=== PATIENT | male | born 1995 | race Caucasian/White ===

== ENCOUNTER 2018-09-19 13:04 | Emergency (ER) | payer OTHER ==
--- NOTE | 2018-09-19 14:12 | EDM.PDOC ---
ED HPI GENERAL MEDICAL PROBLEM - General Chief Complaint: Lower Extremity Injury/Pain Stated Complaint: LEFT FOOT INJURY Time Seen by Provider: 09/19/18 13:10 Source of Information: Reports: Patient History Limitations: Reports: No Limitations - History of Present Illness INITIAL COMMENTS - FREE TEXT/NARRATIVE: 23 year old male presents for evaluation and treatment of an injury to the left foot. Patient was at work and stepped into a hole. Reports feeling something pop in his foot. Denies hearing any popping, cracking, etc. Denies any inversion or eversion type injury. States he has been unable to bare weight. Reports some swelling to the foot. No bruising to the foot. Injury occurred about 2 hours prior to arrival in the ER. No treatments prior to arrival. Reports previous injuries of ankle sprains, no previous fractures. - Related Data Allergies Allergy/AdvReac Type Severity Reaction Status Date / Time Penicillins Allergy Unknown Other Verified 09/19/18 13:13 Home Meds: Home Meds Omeprazole 40 mg PO DAILY 09/19/18 [History] Past Medical History Cardiovascular History: Reports: Hypertension Respiratory History: Reports: Asthma Gastrointestinal History: Reports: GERD - Past Surgical History Other Musculoskeletal Surgeries/Procedures:: Shoulder Surgery Social & Family History - Tobacco Use Smoking Status *Q: Light Tobacco Smoker Years of Tobacco use: 10 Packs/Tins Daily: 0.2 - Caffeine Use Caffeine Use: Reports: Energy Drinks - Recreational Drug Use Recreational Drug Use: No Review of Systems - Review of Systems Review Of Systems: See Below Musculoskeletal: Reports: Foot Pain (left), Joint Pain (left ankle), Joint Swelling (left ankle) Neurological: Reports: Difficulty Walking. Denies: Numbness, Tingling ED EXAM, GENERAL - Physical Exam Exam: See Below Exam Limited By: No Limitations General Appearance: Alert, WD/WN, No Apparent Distress Throat/Mouth: Normal Inspection, Normal Voice Respiratory/Chest: No Respiratory Distress Cardiovascular: Normal Peripheral Pulses, Regular Rate, Rhythm Peripheral Pulses: 2+: Posterior Tibial (L), Dorsalis Pedis (L) Extremities: Normal Inspection (no obvious deformity), Normal Capillary Refill, Joint Swelling (minor swelling to the medial left ankle), Other (tenderness to palpation to the medial left ankle and medial foot) Neurological: Alert, Oriented Psychiatric: Normal Affect, Normal Mood Skin Exam: Warm, Dry, Normal Color Course - Vital Signs Last Recorded V/S: Last Vital Signs Temp 98.3 F 09/19/18 13:10 Pulse 99 09/19/18 13:10 Resp 16 09/19/18 13:10 BP 152/95 H 09/19/18 13:10 Pulse Ox 100 09/19/18 13:10 - Orders/Labs/Meds Orders: Active Orders 24 hr Category Date Time Status Durable Medical Equipment for Discharge [DME for Oth 09/19/18 14:41 Ordered Discharge] [COMM] Stat - Radiology Interpretation Free Text/Narrative:: xray of the left foot and ankle shows no acute fractures or dislocations - Re-Assessments/Exams Free Text/Narrative Re-Assessment/Exam: 09/19/18 14:40 Reviewed the xrays results with the patient. Recommend off the foot and ankle until re evaluated with [facility]. OTC tylenol and motrin as needed for pain. Discharge instructions as documented. Departure - Departure Time of Disposition: 14:41 Disposition: Home, Self-Care 01 Condition: Good Clinical Impression: Ankle sprain - Discharge Information *PRESCRIPTION DRUG MONITORING PROGRAM REVIEWED*: No *COPY OF PRESCRIPTION DRUG MONITORING REPORT IN PATIENT ADELA: No Instructions: Ankle Sprain, [id number] Referrals: PCP,None [Primary Care Provider] - Boom Matamoros MD [Physician] - Forms: ED Department Discharge, ED Return to Work/School Form Additional Instructions: Recommend off of the foot and ankle rest of this week. Crutches and Nirmal bandage. Recommend ice and elevation. [id number] Tylenol and Motrin as needed for pain relief and swelling. follow-up with occupational health Monday or Monday next week for recheck of the ankle. Recommend Dr. Matamoros at [facility]. Call [phone] to schedule with him. May return to work today if a light job duty is available (such as desk work) and you are able to be off of the foot and ankle. Please return to the ER if your symptoms change or worsen. - My Orders Last 24 Hours: My Active Orders 09/19/18 14:41 Durable Medical Equipment for Discharge [DME for Discharge] [COMM] Stat - Assessment/Plan Last 24 Hours: My Active Orders 09/19/18 14:41 Durable Medical Equipment for Discharge [DME for Discharge] [COMM] Stat
--- NOTE | 2018-09-19 15:15 | CR ---
Left foot: Four views of the left foot were obtained. Comparison: No prior foot exam. No fracture, dislocation or other bony abnormality is seen. Impression: 1. No abnormality is seen on left foot exam. Diagnostic code #1
--- NOTE | 2018-09-19 15:15 | CR ---
Left ankle: Four views of the left ankle were obtained. Comparison: No previous ankle exam. Ankle mortise is symmetric. No fracture, dislocation or other bony abnormality is seen. Impression: 1. No abnormality is seen on left ankle exam. Diagnostic code #1
== END 2018-09-19 15:19 | disposition home or self-care (01) ==
LOC: JD.ED 13:04
DX: S93.402A Sprain of unspecified ligament of left ankle, initial encounter (principal); F17.210 Nicotine dependence, cigarettes, uncomplicated; I10 Essential (primary) hypertension; Z79.899 Other long term (current) drug therapy; Z88.0 Allergy status to penicillin; W22.8XXA Striking against or struck by other objects, initial encounter; Y99.0 Civilian activity done for income or pay
CPT/HCPCS: 73610-26-LT; 73610-LT; 73630-26-LT; 73630-LT; 99282; 99283-25